=== PATIENT | male | born 1970 | race Hispanic/Latino ===

== ENCOUNTER 2017-04-02 14:30 | Emergency (ER) | payer SELFPAY ==
[~2017-04-02] VITALS: Ht 152.4 cm; Wt 70.0 kg
[2017-04-02] MEDS ORDERED: CORTISPORIN OTI10 ML AS (17:31)
[2017-04-02] MEDS ORDERED: AMOXICILLIN500 MG PO (17:31)
[2017-04-02 17:38] VITALS: BP 143/78
== END 2017-04-02 17:40 | disposition home or self-care (01) | DRG 153 ==
LOC: ED 14:30
DX: H66.92 Otitis media, unspecified, left ear (principal); I10 Essential (primary) hypertension

== ENCOUNTER 2018-04-08 14:23 | Emergency (ER) | payer SELFPAY ==
[~2018-04-08] VITALS: Ht 152.4 cm; Wt 56.5 kg
[~2018-04-08 14:23] MED LIST: AMOXICILLIN500 MG PO; CORTISPORIN OTI10 ML AS
[2018-04-08 14:45] VITALS: BP 143/93
== END 2018-04-08 15:40 | disposition left against medical advice (07) | DRG 951 ==
LOC: ED 14:23 → LWOBS 15:26 → ED 15:26 → LWOBS 15:40
DX: Z91.19 Patient's noncompliance with other medical treatment and regimen (principal)

== ENCOUNTER 2018-08-30 11:15 | Emergency (ER) | payer SELFPAY ==
[~2018-08-30] VITALS: Ht 152.4 cm; Wt 60.0 kg
[2018-08-30 12:36] VITALS: BP 146/88
== END 2018-08-30 12:36 | disposition home or self-care (01) | DRG 156 ==
LOC: ED 11:15
DX: S01.20XA Unspecified open wound of nose, initial encounter (principal); I10 Essential (primary) hypertension; X58.XXXA Exposure to other specified factors, initial encounter

== ENCOUNTER 2018-10-10 14:23 | Emergency (ER) | payer SELFPAY ==
[~2018-10-10] VITALS: Ht 152.4 cm; Wt 70.0 kg
[2018-10-10] MEDS ORDERED: MOTRIN400 MG PO (15:37)
[2018-10-10 15:47] VITALS: BP 119/78
== END 2018-10-10 15:48 | disposition home or self-care (01) | DRG 103 ==
LOC: ED 14:23
DX: R51 Headache (principal); I10 Essential (primary) hypertension

== ENCOUNTER 2018-12-26 13:13 | Emergency (ER) | payer SELFPAY ==
[~2018-12-26] VITALS: Ht 152.4 cm; Wt 65.0 kg
[~2018-12-26 13:13] MED LIST changes: +MOTRIN400 MG PO
[2018-12-26] MEDS ORDERED: BACTRIM DS1 TAB PO (14:50)
[2018-12-26] MEDS ORDERED: CEPHALEXIN500 M1 PO (14:50)
[2018-12-26 15:26] VITALS: BP 116/73
== END 2018-12-26 15:26 | disposition home or self-care (01) | DRG 607 ==
LOC: ED 13:13
DX: R22.2 Localized swelling, mass and lump, trunk (principal)

== ENCOUNTER 2019-02-08 16:02 | Observation (INO) | payer SELFPAY ==
[~2019-02-08] VITALS: Ht 152.4 cm; Wt 51.0 kg
[~2019-02-08 16:02] MED LIST changes: +BACTRIM DS1 TAB PO; +CEPHALEXIN500 M1 PO
[2019-02-08 17:21] LABS: URINE BILIRUBIN - DIPSTICK NEGATIVE (NEGATIVE); URINE BLOOD DIPSTICK NEGATIVE (NEGATIVE); URINE COLOR YELLOW; URINE GLUCOSE - DIPSTICK NEGATIVE (NEGATIVE); URINE KETONE NEGATIVE (NEGATIVE); URINE LEUK ESTERASE NEGATIVE (NEGATIVE); URINE NITRITE - DIPSTICK NEGATIVE (Negative); URINE PROTEIN - DIPSTICK NEGATIVE (NEG-TRACE); URINE SPECIFIC GRAVITY <=1.005; URINE UROBILINOGEN - DIPSTICK 0.2 E.U./dL (0.2)
[2019-02-08 17:24] LABS: BARBITURATES NEGATIVE (NEGATIVE); COCAINE NEGATIVE (NEGATIVE); METHADONE NEGATIVE (NEGATIVE); OXCYCODONE NEGATIVE (NEGATIVE); TETRAHYDROCANNABIONOL NEGATIVE (NEGATIVE); TRICYLIC ANTIDEPRESSANTS NEGATIVE (NEGATIVE)
[2019-02-08 17:34] LABS: ALBUMIN 4.5 g/dL (3.2-5.0); ALKALINE PHOSPHATASE 130 u/l (38-126); ANION GAP 21 (6-22 (CALC)); BUN 2 mg/dL (9-20); BUN/CREATININE RATIO 5 (12-20 (CALC)); CARBON DIOXIDE 25 mmol/l (22-30); CHLORIDE 100 mmol/l (95-108); CPK 160 u/l (52-200); CREATININE 0.4 mg/dL (0.7-1.3); GFR > 60 ML/MIN (>=60 (CALC)); GFR FOR AFR.AMER. > 60 ML/MIN (>=60 (CALC)); MAGNESIUM 1.6 mg/dL (1.6-2.3); POTASSIUM 4.2 mmol/l (3.5-5.1); SGOT/AST 193 u/l (17-59); SODIUM 141 mmol/l (137-146)
[2019-02-08 17:51] LABS: BILIRUBIN, TOTAL 0.6 mg/dL (0.0-1.4)
[2019-02-08 17:52] LABS: ETHYL ALCOHOL 386 mg/dl (0-30)
[2019-02-08 17:55] LABS: HEMATOCRIT 33.2 % (39.0-50.0); HEMOGLOBIN 11.2 g/dl (14.0-18.0); IMMATURE GRANULOCYTES 0.4 % (0.0-5.0); MEAN CELL VOLUME 93.5 fL CALC (80.0-100.0); MEAN CORPUSCULAR HGB 31.5 pG CALC (26.0-32.0); MEAN CORPUSCULAR HGB CONC 33.7 g/L CALC (32.0-36.0); NEUT# 3.45 thou/uL (1.82-7.42); RED BLOOD COUNT 3.55 mill/uL (4.70-6.10); RED CELL DISTRI WIDTH 13.6 % (11.5-15.5)
[2019-02-08 19:05] VITALS: BP 128/73
[2019-02-09 00:20] VITALS: BP 130/76
[2019-02-09 04:43] VITALS: BP 162/92
[2019-02-09 05:32] LABS: HEMATOCRIT 35.2 % (39.0-50.0); HEMOGLOBIN 11.6 g/dl (14.0-18.0); IMMATURE GRANULOCYTES 0.2 % (0.0-5.0); MEAN CELL VOLUME 95.1 fL CALC (80.0-100.0); MEAN CORPUSCULAR HGB 31.4 pG CALC (26.0-32.0); NEUT# 4.4 thou/uL (1.82-7.42); RED BLOOD COUNT 3.7 mill/uL (4.70-6.10); RED CELL DISTRI WIDTH 13.4 % (11.5-15.5)
[2019-02-09 05:45] LABS: ALBUMIN 4.4 g/dL (3.2-5.0); ALKALINE PHOSPHATASE 131 u/l (38-126); ANION GAP 17 (6-22 (CALC)); BILIRUBIN, TOTAL 0.8 mg/dL (0.0-1.4); BUN 2 mg/dL (9-20); BUN/CREATININE RATIO 6 (12-20 (CALC)); CARBON DIOXIDE 29 mmol/l (22-30); CHLORIDE 101 mmol/l (95-108); CREATININE 0.4 mg/dL (0.7-1.3); GFR > 60 ML/MIN (>=60 (CALC)); GFR FOR AFR.AMER. > 60 ML/MIN (>=60 (CALC)); POTASSIUM 4.1 mmol/l (3.5-5.1); SGOT/AST 186 u/l (17-59); SODIUM 143 mmol/l (137-146)
[2019-02-09 07:37] VITALS: BP 153/85
[2019-02-09 11:25] VITALS: BP 107/69; BP 137/84
[2019-02-09 12:57] LABS: MAGNESIUM 1.2 mg/dL (1.6-2.3)
[2019-02-09 15:25] VITALS: BP 125/75
[2019-02-09 20:05] VITALS: BP 131/73
[2019-02-10 00:10] VITALS: BP 146/81
[2019-02-10 04:26] VITALS: BP 158/82
[2019-02-10 05:19] LABS: HEMATOCRIT 36.7 % (39.0-50.0); HEMOGLOBIN 12.3 g/dl (14.0-18.0); IMMATURE GRANULOCYTES 0.4 % (0.0-5.0); MEAN CELL VOLUME 94.3 fL CALC (80.0-100.0); MEAN CORPUSCULAR HGB 31.6 pG CALC (26.0-32.0); MEAN CORPUSCULAR HGB CONC 33.5 g/L CALC (32.0-36.0); NEUT# 3.94 thou/uL (1.82-7.42); RED BLOOD COUNT 3.89 mill/uL (4.70-6.10); RED CELL DISTRI WIDTH 13.2 % (11.5-15.5)
[2019-02-10 05:42] LABS: ALBUMIN 4.2 g/dL (3.2-5.0); ALKALINE PHOSPHATASE 124 u/l (38-126); ANION GAP 17 (6-22 (CALC)); BUN 6 mg/dL (9-20); BUN/CREATININE RATIO 15 (12-20 (CALC)); CARBON DIOXIDE 27 mmol/l (22-30); CHLORIDE 100 mmol/l (95-108); CREATININE 0.4 mg/dL (0.7-1.3); GFR > 60 ML/MIN (>=60 (CALC)); GFR FOR AFR.AMER. > 60 ML/MIN (>=60 (CALC)); POTASSIUM 3.5 mmol/l (3.5-5.1); SGOT/AST 121 u/l (17-59); SODIUM 140 mmol/l (137-146); TOTAL PROTEIN 8.4 g/dL (6.3-8.2)
[2019-02-10 05:53] LABS: BILIRUBIN, TOTAL 1.4 mg/dL (0.0-1.4)
[2019-02-10 07:56] VITALS: BP 118/78
[2019-02-10 10:54] VITALS: BP 155/93
[2019-02-10] MEDS ORDERED: AMOX/K CLAV875 M1 PO (11:22)
== END 2019-02-10 15:45 | disposition home or self-care (01) | DRG 195 ==
LOC: ED 16:02 → ED-I 17:57 → ED 18:16 → MS2 18:17
PROVIDERS: Nurse Practitioner Family; ADMIT Internal Medicine; ATTEND Internal Medicine
DX: J18.9 Pneumonia, unspecified organism (principal); F10.129 Alcohol abuse with intoxication, unspecified; Y90.8 Blood alcohol level of 240 mg/100 ml or more; I10 Essential (primary) hypertension; G62.9 Polyneuropathy, unspecified; D69.59 Other secondary thrombocytopenia; R07.89 Other chest pain
CPT/HCPCS: G0378; J1650; J3475

== ENCOUNTER 2019-03-11 18:05 | Emergency (ER) | payer SELFPAY ==
[~2019-03-11] VITALS: Ht 152.4 cm; Wt 46.0 kg
[~2019-03-11 18:05] MED LIST changes: +AMOX/K CLAV875 M1 PO
[2019-03-11] MEDS ORDERED: CORTISPORIN OTI10 M2 AS (18:32)
[2019-03-11 18:54] VITALS: BP 135/82
== END 2019-03-11 18:54 | disposition home or self-care (01) | DRG 156 ==
LOC: ED 18:05
DX: H60.92 Unspecified otitis externa, left ear (principal); S00.412A Abrasion of left ear, initial encounter; I10 Essential (primary) hypertension; X58.XXXA Exposure to other specified factors, initial encounter

== ENCOUNTER 2019-07-16 | Emergency (ER) | payer SELFPAY ==
[~2019-07-16] MED LIST changes: +CORTISPORIN OTI10 M2 AS
[2019-07-16] MEDS ORDERED: CEPHALEXIN500 M1 PO (16:43)
[2019-07-16] MEDS ORDERED: BACTRIM DS1 TAB PO (16:43)
== END 2019-07-16 17:42 | disposition home or self-care (01) | DRG 563 ==
PROC: 0RSXXZZ Reposition Left Finger Phalangeal Joint, External Approach (ICD-10-PCS; principal; 2019-07-16)
DX: S63.285A Dislocation of proximal interphalangeal joint of left ring finger, initial encounter (principal); L03.113 Cellulitis of right upper limb; I10 Essential (primary) hypertension; W31.89XA Contact with other specified machinery, initial encounter; Y92.89 Other specified places as the place of occurrence of the external cause; Y99.0 Civilian activity done for income or pay

== ENCOUNTER 2019-07-17 14:13 | Emergency (ER) | payer SELFPAY ==
[2019-07-17 15:25] VITALS: BP 130/80
== END 2019-07-17 15:37 | disposition home or self-care (01) | DRG 603 ==
LOC: ED 14:13 → EDBD 14:49 → ED 15:37
DX: L03.011 Cellulitis of right finger (principal); L03.012 Cellulitis of left finger; T50.916A Underdosing of multiple unspecified drugs, medicaments and biological substances, initial encounter; Z91.120 Patient's intentional underdosing of medication regimen due to financial hardship; S60.411D Abrasion of left index finger, subsequent encounter; X58.XXXD Exposure to other specified factors, subsequent encounter

== ENCOUNTER 2019-08-16 | Emergency (ER) | payer SELFPAY ==
[2019-08-16 18:01] LABS: IMMATURE GRANULOCYTES 0.2 % (0.0-5.0); MEAN CORPUSCULAR HGB 29.7 pG CALC (26.0-32.0); NEUT# 2.89 thou/uL (1.82-7.42); RED BLOOD COUNT 3.47 mill/uL (4.70-6.10); RED CELL DISTRI WIDTH 14.1 % (11.5-15.5)
[2019-08-16 18:21] LABS: HEMATOCRIT 30.3 % (39.0-50.0); HEMOGLOBIN 10.3 g/dl (14.0-18.0); MEAN CELL VOLUME 87.3 fL CALC (80.0-100.0)
[2019-08-16 18:30] LABS: BUN 7 mg/dL (9-20); BUN/CREATININE RATIO 14 (12-20 (CALC)); CHLORIDE 93 mmol/l (95-108); CREATININE 0.5 mg/dL (0.7-1.3); GFR > 60 ML/MIN (>=60 (CALC)); GFR FOR AFR.AMER. > 60 ML/MIN (>=60 (CALC)); POTASSIUM 4.2 mmol/l (3.5-5.1)
[2019-08-16 18:33] LABS: ANION GAP 21 (6-22 (CALC)); CARBON DIOXIDE 21 mmol/l (22-30); SODIUM 131 mmol/l (137-146)
[2019-08-16] MEDS ORDERED: MOTRIN400 MG PO (18:38)
== END 2019-08-16 19:05 | disposition home or self-care (01) | DRG 313 ==
PROVIDERS: Family Medicine
DX: R07.9 Chest pain, unspecified (principal); S20.219A Contusion of unspecified front wall of thorax, initial encounter; I10 Essential (primary) hypertension; Y04.0XXA Assault by unarmed brawl or fight, initial encounter

== ENCOUNTER 2019-08-23 | Emergency (ER) | payer SELFPAY ==
[2019-08-23 21:05] LABS: HEMOGLOBIN 10.3 g/dl (14.0-18.0); IMMATURE GRANULOCYTES 0.2 % (0.0-5.0); MEAN CELL VOLUME 86.2 fL CALC (80.0-100.0); MEAN CORPUSCULAR HGB 29.6 pG CALC (26.0-32.0); MEAN CORPUSCULAR HGB CONC 34.3 g/dL CAL (32.0-36.0); NEUT# 3.17 thou/uL (1.82-7.42); RED BLOOD COUNT 3.48 mill/uL (4.70-6.10); RED CELL DISTRI WIDTH 14.3 % (11.5-15.5)
[2019-08-23 21:15] LABS: ALBUMIN 4.7 g/dL (3.2-5.0); ALKALINE PHOSPHATASE 117 u/l (38-126); AMYLASE 53 u/l (30-110); ANION GAP 22 (6-22 (CALC)); BUN 5 mg/dL (9-20); BUN/CREATININE RATIO 12 (12-20 (CALC)); CARBON DIOXIDE 19 mmol/l (22-30); CHLORIDE 93 mmol/l (95-108); CREATININE 0.4 mg/dL (0.7-1.3); GFR > 60 ML/MIN (>=60 (CALC)); GFR FOR AFR.AMER. > 60 ML/MIN (>=60 (CALC)); LIPASE 463 u/l (23-300); POTASSIUM 4.5 mmol/l (3.5-5.1); SODIUM 130 mmol/l (137-146); TOTAL PROTEIN 9.3 g/dL (6.3-8.2)
[2019-08-23 21:18] LABS: BILIRUBIN, TOTAL 0.7 mg/dL (0.0-1.4); SGOT/AST 234 u/l (17-59)
[2019-08-23 21:26] LABS: MYOGLOBIN 30 ng/mL (0 - 121)
[2019-08-23 21:31] LABS: ETHYL ALCOHOL 416 mg/dl (0-30)
[2019-08-23 22:04] LABS: BARBITURATES NEGATIVE (NEGATIVE); COCAINE NEGATIVE (NEGATIVE); METHADONE NEGATIVE (NEGATIVE); OXCYCODONE NEGATIVE (NEGATIVE); TETRAHYDROCANNABIONOL NEGATIVE (NEGATIVE); TRICYLIC ANTIDEPRESSANTS NEGATIVE (NEGATIVE); URINE BILIRUBIN - DIPSTICK NEGATIVE (NEGATIVE); URINE BLOOD DIPSTICK NEGATIVE (NEGATIVE); URINE COLOR YELLOW; URINE GLUCOSE - DIPSTICK NEGATIVE (NEGATIVE); URINE KETONE NEGATIVE (NEGATIVE); URINE LEUK ESTERASE NEGATIVE (NEGATIVE); URINE NITRITE - DIPSTICK NEGATIVE (Negative); URINE PH 5.5 (4.5-8.0); URINE PROTEIN - DIPSTICK NEGATIVE (NEG-TRACE); URINE SPECIFIC GRAVITY <=1.005; URINE UROBILINOGEN - DIPSTICK 0.2 E.U./dL (0.2)
[2019-08-23] MEDS ORDERED: PEPCID20 MG PO (22:30)
== END 2019-08-24 09:05 | disposition home or self-care (01) | DRG 313 ==
PROVIDERS: Family Medicine
DX: R07.89 Other chest pain (principal); F10.10 Alcohol abuse, uncomplicated; I10 Essential (primary) hypertension

== ENCOUNTER 2019-08-27 | Emergency (ER) | payer SELFPAY ==
[~2019-08-27] MED LIST changes: +PEPCID20 MG PO
[2019-08-27 07:28] LABS: HEMATOCRIT 30.9 % (39.0-50.0); HEMOGLOBIN 10.4 g/dl (14.0-18.0); IMMATURE GRANULOCYTES 0.4 % (0.0-5.0); MEAN CELL VOLUME 88.3 fL CALC (80.0-100.0); MEAN CORPUSCULAR HGB 29.7 pG CALC (26.0-32.0); MEAN CORPUSCULAR HGB CONC 33.7 g/dL CAL (32.0-36.0); NEUT# 3.94 thou/uL (1.82-7.42); RED BLOOD COUNT 3.5 mill/uL (4.70-6.10); RED CELL DISTRI WIDTH 14.8 % (11.5-15.5)
[2019-08-27 07:45] LABS: ALBUMIN 4.6 g/dL (3.2-5.0); ALKALINE PHOSPHATASE 149 u/l (38-126); ANION GAP 21 (6-22 (CALC)); BILIRUBIN, TOTAL 0.8 mg/dL (0.0-1.4); BUN 4 mg/dL (9-20); BUN/CREATININE RATIO 10 (12-20 (CALC)); CARBON DIOXIDE 22 mmol/l (22-30); CHLORIDE 97 mmol/l (95-108); CREATININE 0.4 mg/dL (0.7-1.3); GFR > 60 ML/MIN (>=60 (CALC)); GFR FOR AFR.AMER. > 60 ML/MIN (>=60 (CALC)); POTASSIUM 4.2 mmol/l (3.5-5.1); SGOT/AST 293 u/l (17-59); SODIUM 135 mmol/l (137-146); TOTAL PROTEIN 9.3 g/dL (6.3-8.2)
[2019-08-27 08:06] LABS: ACT PARTIAL THROMBO TIME 29.9 SECONDS (20.0-32.5); INTERNATIONAL NORMALIZED RATIO 1.1 RATIO (0.7-1.3); PROTHROMBIN TIME 11.4 SECONDS (9.0-12.5)
[2019-08-27 08:08] LABS: ETHYL ALCOHOL 366 mg/dl (0-30)
== END 2019-08-27 16:38 | disposition home or self-care (01) | DRG 156 ==
DX: S02.2XXA Fracture of nasal bones, initial encounter for closed fracture (principal); S20.212A Contusion of left front wall of thorax, initial encounter; S20.211A Contusion of right front wall of thorax, initial encounter; S05.11XA Contusion of eyeball and orbital tissues, right eye, initial encounter; Y04.2XXA Assault by strike against or bumped into by another person, initial encounter; I10 Essential (primary) hypertension; F10.129 Alcohol abuse with intoxication, unspecified

== ENCOUNTER 2019-08-30 | Emergency (ER) | payer SELFPAY ==
[2019-08-30] MEDS ORDERED: (None)3.5 GM OD (20:18)
[2019-08-30] MEDS ORDERED: AUGMENTIN500TAB PO (20:18)
== END 2019-08-30 20:40 | disposition home or self-care (01) | DRG 125 ==
DX: B60.12 Conjunctivitis due to Acanthamoeba (principal); H11.31 Conjunctival hemorrhage, right eye; S00.11XD Contusion of right eyelid and periocular area, subsequent encounter; S02.2XXD Fracture of nasal bones, subsequent encounter for fracture with routine healing; Y09 Assault by unspecified means

== ENCOUNTER 2019-09-10 | Emergency (ER) | payer SELFPAY ==
[~2019-09-10] MED LIST changes: +(None)3.5 GM OD; +AUGMENTIN500TAB PO
== END 2019-09-10 20:23 | disposition left against medical advice (07) | DRG 951 ==
DX: Z53.21 Procedure and treatment not carried out due to patient leaving prior to being seen by health care provider (principal)

== ENCOUNTER 2019-09-25 | Emergency (ER) | payer SELFPAY | END 2019-09-25 18:04 | disposition home or self-care (01) | DRG 951 | DX: Z03.89 Encounter for observation for other suspected diseases and conditions ruled out (principal); I10 Essential (primary) hypertension; S00.11XD Contusion of right eyelid and periocular area, subsequent encounter; W50.0XXD Accidental hit or strike by another person, subsequent encounter; Z72.89 Other problems related to lifestyle ==

== ENCOUNTER 2019-10-16 07:59 | Emergency (ER) | payer SELFPAY ==
[2019-10-16 09:04] LABS: HEMATOCRIT 31.8 % (39.0-50.0); HEMOGLOBIN 10.4 g/dl (14.0-18.0); IMMATURE GRANULOCYTES 0.4 % (0.0-5.0); MEAN CELL VOLUME 87.1 fL CALC (80.0-100.0); MEAN CORPUSCULAR HGB 28.5 pG CALC (26.0-32.0); MEAN CORPUSCULAR HGB CONC 32.7 g/dL CAL (32.0-36.0); NEUT# 4.15 thou/uL (1.82-7.42); RED BLOOD COUNT 3.65 mill/uL (4.70-6.10); RED CELL DISTRI WIDTH 16.1 % (11.5-15.5)
[2019-10-16 10:07] LABS: ALBUMIN 4.5 g/dL (3.2-5.0); ALKALINE PHOSPHATASE 168 u/l (38-126); ANION GAP 17 (6-22 (CALC)); BUN 3 mg/dL (9-20); BUN/CREATININE RATIO 7 (12-20 (CALC)); CARBON DIOXIDE 25 mmol/l (22-30); CHLORIDE 98 mmol/l (95-108); CREATININE 0.4 mg/dL (0.7-1.3); GFR > 60 ML/MIN (>=60 (CALC)); GFR FOR AFR.AMER. > 60 ML/MIN (>=60 (CALC)); SGOT/AST 348 u/l (17-59); SODIUM 137 mmol/l (137-146); TOTAL PROTEIN 9.7 g/dL (6.3-8.2)
[2019-10-16] MEDS ORDERED: MEDDOSEPAK PO ×2 (10:33)
[2019-10-16 10:36] LABS: ETHYL ALCOHOL 287 mg/dl (0-30)
[2019-10-16 10:44] VITALS: BP 129/95
== END 2019-10-16 10:50 | disposition home or self-care (01) | DRG 74 ==
LOC: ED 07:59
PROVIDERS: Emergency Medicine
DX: G58.8 Other specified mononeuropathies (principal); I10 Essential (primary) hypertension; F10.10 Alcohol abuse, uncomplicated

== ENCOUNTER 2019-10-22 20:09 | Emergency (ER) | payer SELFPAY ==
[~2019-10-22 20:09] MED LIST changes: +MEDDOSEPAK PO
[2019-10-22 21:17] LABS: HEMATOCRIT 26.2 % (39.0-50.0); HEMOGLOBIN 8.6 g/dl (14.0-18.0); IMMATURE GRANULOCYTES 0.3 % (0.0-5.0); MEAN CELL VOLUME 86.5 fL CALC (80.0-100.0); MEAN CORPUSCULAR HGB 28.4 pG CALC (26.0-32.0); MEAN CORPUSCULAR HGB CONC 32.8 g/dL CAL (32.0-36.0); NEUT# 4.39 thou/uL (1.82-7.42); RED BLOOD COUNT 3.03 mill/uL (4.70-6.10); RED CELL DISTRI WIDTH 17.1 % (11.5-15.5)
[2019-10-22 21:28] LABS: ALBUMIN 4.2 g/dL (3.2-5.0); ALKALINE PHOSPHATASE 157 u/l (38-126); BILIRUBIN, TOTAL 1.1 mg/dL (0.0-1.4); BUN 5 mg/dL (9-20); BUN/CREATININE RATIO 12 (12-20 (CALC)); CHLORIDE 96 mmol/l (95-108); CREATININE 0.4 mg/dL (0.7-1.3); GFR > 60 ML/MIN (>=60 (CALC)); GFR FOR AFR.AMER. > 60 ML/MIN (>=60 (CALC)); POTASSIUM 4.7 mmol/l (3.5-5.1); SGOT/AST 251 u/l (17-59); SODIUM 131 mmol/l (137-146)
[2019-10-22 21:36] LABS: ANION GAP 22 (6-22 (CALC)); CARBON DIOXIDE 18 mmol/l (22-30)
[2019-10-22 21:38] LABS: ETHYL ALCOHOL 359 mg/dl (0-30)
[2019-10-23 00:50] LABS: INTERNATIONAL NORMALIZED RATIO 1.2 RATIO (0.7-1.3); PROTHROMBIN TIME 12.2 SECONDS (9.0-12.5)
[2019-10-23 01:00] VITALS: BP 115/70
[2019-10-23 01:39] LABS: URINE BILIRUBIN - DIPSTICK NEGATIVE (NEGATIVE); URINE BLOOD DIPSTICK LARGE (NEGATIVE); URINE COLOR YELLOW; URINE GLUCOSE - DIPSTICK NEGATIVE (NEGATIVE); URINE KETONE NEGATIVE (NEGATIVE); URINE NITRITE - DIPSTICK NEGATIVE (Negative); URINE PROTEIN - DIPSTICK NEGATIVE (NEG-TRACE); URINE UROBILINOGEN - DIPSTICK 0.2 E.U./dL (0.2)
[2019-10-23 01:45] LABS: URINE LEUK ESTERASE NEGATIVE (NEGATIVE)
[2019-10-23 01:46] LABS: COCAINE NEGATIVE (NEGATIVE); URINE BACTERIA FEW hpf; URINE EPITHELIAL CELLS FEW EPI/hpf (0-FEW); URINE RBC 25-50 RBC/hpf (0-5)
[2019-10-23 01:47] LABS: BARBITURATES NEGATIVE (NEGATIVE); METHADONE NEGATIVE (NEGATIVE); OXCYCODONE NEGATIVE (NEGATIVE); TETRAHYDROCANNABIONOL NEGATIVE (NEGATIVE); TRICYLIC ANTIDEPRESSANTS NEGATIVE (NEGATIVE)
== END 2019-10-23 01:16 | DRG 563 ==
LOC: ED 20:09
PROVIDERS: Emergency Medicine
DX: S82.142A Displaced bicondylar fracture of left tibia, initial encounter for closed fracture (principal); F10.129 Alcohol abuse with intoxication, unspecified; M21.332 Wrist drop, left wrist; I10 Essential (primary) hypertension; V03.90XA Pedestrian on foot injured in collision with car, pick-up truck or van, unspecified whether traffic or nontraffic accident, initial encounter
CPT/HCPCS: L1830

== ENCOUNTER 2019-11-15 17:00 | Emergency (ER) | payer SELFPAY ==
[~2019-11-15] VITALS: Ht 154.9 cm; Wt 50.0 kg
[2019-11-15 18:00] LABS: HEMATOCRIT 29.1 % (39.0-50.0); HEMOGLOBIN 9.8 g/dl (14.0-18.0); IMMATURE GRANULOCYTES 0.3 % (0.0-5.0); MEAN CELL VOLUME 86.6 fL CALC (80.0-100.0); MEAN CORPUSCULAR HGB 29.2 pG CALC (26.0-32.0); MEAN CORPUSCULAR HGB CONC 33.7 g/dL CAL (32.0-36.0); NEUT# 4.13 thou/uL (1.82-7.42); RED BLOOD COUNT 3.36 mill/uL (4.70-6.10); RED CELL DISTRI WIDTH 16.9 % (11.5-15.5)
[2019-11-15 18:35] LABS: D-DIMER 3.71 mg/L (0.19-0.60)
[2019-11-15 18:36] LABS: INTERNATIONAL NORMALIZED RATIO 1.1 RATIO (0.7-1.3); PROTHROMBIN TIME 11.8 SECONDS (9.0-12.5)
[2019-11-15 20:23] VITALS: BP 136/86
== END 2019-11-15 21:25 | disposition home or self-care (01) | DRG 556 ==
LOC: ED 17:00
PROVIDERS: Emergency Medicine
DX: M79.89 Other specified soft tissue disorders (principal); I10 Essential (primary) hypertension; V09.9XXD Pedestrian injured in unspecified transport accident, subsequent encounter

== ENCOUNTER 2020-01-06 12:19 | Emergency (ER) | payer OTHER ==
[~2020-01-06] VITALS: Ht 154.9 cm; Wt 59.1 kg
[2020-01-06 14:16] VITALS: BP 148/81
== END 2020-01-06 14:07 | disposition home or self-care (01) | DRG 556 ==
LOC: ED 12:19
DX: M25.562 Pain in left knee (principal); I10 Essential (primary) hypertension; V09.9XXA Pedestrian injured in unspecified transport accident, initial encounter

== ENCOUNTER 2020-03-11 15:50 | Emergency (ER) | payer SELFPAY | END 2020-03-11 16:25 | disposition left against medical advice (07) | DRG 951 | LOC: ED 15:50 → LWOBS 16:25 → ED 16:25 | DX: Z91.19 Patient's noncompliance with other medical treatment and regimen (principal) ==

== ENCOUNTER 2020-03-19 08:27 | Emergency (ER) | payer SELFPAY ==
[~2020-03-19] VITALS: Ht 154.9 cm; Wt 50.0 kg
[2020-03-19 09:22] LABS: HEMOGLOBIN 10.9 g/dl (14.0-18.0); IMMATURE GRANULOCYTES 0.2 % (0.0-5.0); MEAN CORPUSCULAR HGB 31.4 pG CALC (26.0-32.0); MEAN CORPUSCULAR HGB CONC 34.1 g/dL CAL (32.0-36.0); NEUT# 3.18 thou/uL (1.82-7.42); RED BLOOD COUNT 3.47 mill/uL (4.70-6.10); RED CELL DISTRI WIDTH 14.1 % (11.5-15.5)
[2020-03-19 09:32] LABS: MEAN CELL VOLUME 92.2 fL CALC (80.0-100.0)
[2020-03-19 09:41] LABS: ALBUMIN 4.7 g/dL (3.2-5.0); ALKALINE PHOSPHATASE 132 u/l (38-126); BILIRUBIN, TOTAL 1.1 mg/dL (0.0-1.4); BUN < 2 mg/dL (9-20); CHLORIDE 90 mmol/l (95-108); CREATININE 0.4 mg/dL (0.7-1.3); GFR > 60 ML/MIN (>=60 (CALC)); GFR FOR AFR.AMER. > 60 ML/MIN (>=60 (CALC)); SGOT/AST 303 u/l (17-59); SODIUM 130 mmol/l (137-146); TOTAL PROTEIN 9.5 g/dL (6.3-8.2)
[2020-03-19 09:50] LABS: ANION GAP 18 (6-22 (CALC)); CARBON DIOXIDE 26 mmol/l (22-30); POTASSIUM 3.7 mmol/l (3.5-5.1)
[2020-03-19 09:52] LABS: ETHYL ALCOHOL 360 mg/dl (0-30)
[2020-03-19] MEDS ORDERED: MEDDOSEPAK PO (10:04)
[2020-03-19 10:41] VITALS: BP 145/92
== END 2020-03-19 11:05 | disposition home or self-care (01) | DRG 74 ==
LOC: ED 08:27
DX: G56.31 Lesion of radial nerve, right upper limb (principal); F10.129 Alcohol abuse with intoxication, unspecified; I10 Essential (primary) hypertension

== ENCOUNTER 2020-05-28 08:12 | Emergency (ER) | payer SELFPAY ==
[~2020-05-28] VITALS: Ht 154.9 cm; Wt 65.0 kg
[2020-05-28 08:47] LABS: HEMATOCRIT 36.2 % (39.0-50.0); HEMOGLOBIN 12.1 g/dl (14.0-18.0); IMMATURE GRANULOCYTES 0.2 % (0.0-5.0); MEAN CELL VOLUME 89.2 fL CALC (80.0-100.0); MEAN CORPUSCULAR HGB 29.8 pG CALC (26.0-32.0); MEAN CORPUSCULAR HGB CONC 33.4 g/dL CAL (32.0-36.0); NEUT# 2.35 thou/uL (1.82-7.42); RED BLOOD COUNT 4.06 mill/uL (4.70-6.10); RED CELL DISTRI WIDTH 13.8 % (11.5-15.5)
[2020-05-28 08:55] LABS: ALBUMIN 4.3 g/dL (3.2-5.0); ALKALINE PHOSPHATASE 123 u/l (38-126); BUN 4 mg/dL (9-20); BUN/CREATININE RATIO 10 (12-20 (CALC)); CHLORIDE 99 mmol/l (95-108); CREATININE 0.5 mg/dL (0.7-1.3); GFR > 60 ML/MIN (>=60 (CALC)); GFR FOR AFR.AMER. > 60 ML/MIN (>=60 (CALC)); LIPASE 348 u/l (23-300); SGOT/AST 208 u/l (17-59); SODIUM 133 mmol/l (137-146); TOTAL PROTEIN 9.6 g/dL (6.3-8.2)
[2020-05-28 08:57] LABS: ANION GAP 18 (6-22 (CALC)); BILIRUBIN, TOTAL 0.6 mg/dL (0.0-1.4); CARBON DIOXIDE 20 mmol/l (22-30)
[2020-05-28 09:36] LABS: URINE BILIRUBIN - DIPSTICK NEGATIVE (NEGATIVE); URINE BLOOD DIPSTICK TRACE-INTACT (NEGATIVE); URINE COLOR YELLOW; URINE GLUCOSE - DIPSTICK NEGATIVE (NEGATIVE); URINE KETONE NEGATIVE (NEGATIVE); URINE LEUK ESTERASE NEGATIVE (NEGATIVE); URINE NITRITE - DIPSTICK NEGATIVE (Negative); URINE PH 6.5 (4.5-8.0); URINE PROTEIN - DIPSTICK NEGATIVE (NEG-TRACE); URINE UROBILINOGEN - DIPSTICK 0.2 E.U./dL (0.2)
[2020-05-28] MEDS ORDERED: TAMSULOSIN0.4 MG PO (09:52)
[2020-05-28] MEDS ORDERED: TORADOL PO (09:52)
[2020-05-28 10:01] VITALS: BP 138/83
== END 2020-05-28 10:17 | disposition home or self-care (01) | DRG 694 ==
LOC: ED 08:12
DX: N20.1 Calculus of ureter (principal); I10 Essential (primary) hypertension; F10.10 Alcohol abuse, uncomplicated

== ENCOUNTER 2020-08-12 22:23 | Emergency (ER) | payer SELFPAY ==
[~2020-08-12] VITALS: Ht 154.9 cm; Wt 52.0 kg
[~2020-08-12 22:23] MED LIST changes: +TAMSULOSIN0.4 MG PO; +TORADOL PO
[2020-08-12 23:37] LABS: ALBUMIN 4.7 g/dL (3.2-5.0); ALKALINE PHOSPHATASE 175 u/l (38-126); ANION GAP 20 (6-22 (CALC)); BILIRUBIN, TOTAL 0.8 mg/dL (0.0-1.4); BUN 4 mg/dL (9-20); BUN/CREATININE RATIO 9 (12-20 (CALC)); CARBON DIOXIDE 24 mmol/l (22-30); CHLORIDE 99 mmol/l (95-108); CREATININE 0.5 mg/dL (0.7-1.3); GFR > 60 ML/MIN (>=60 (CALC)); GFR FOR AFR.AMER. > 60 ML/MIN (>=60 (CALC)); POTASSIUM 3.9 mmol/l (3.5-5.1); SGOT/AST 267 u/l (17-59); SODIUM 139 mmol/l (137-146); TOTAL PROTEIN 9.9 g/dL (6.3-8.2)
[2020-08-12 23:38] LABS: HEMATOCRIT 32.5 % (39.0-50.0); HEMOGLOBIN 10.5 g/dl (14.0-18.0); MEAN CELL VOLUME 87.4 fL CALC (80.0-100.0); MEAN CORPUSCULAR HGB 28.2 pG CALC (26.0-32.0); MEAN CORPUSCULAR HGB CONC 32.3 g/dL CAL (32.0-36.0); NEUT# 2.3 thou/uL (1.82-7.42); RED BLOOD COUNT 3.72 mill/uL (4.70-6.10); RED CELL DISTRI WIDTH 16.5 % (11.5-15.5)
[2020-08-13 03:15] VITALS: BP 150/88
== END 2020-08-13 03:15 | disposition home or self-care (01) | DRG 566 ==
LOC: ED 22:23
PROVIDERS: Emergency Medicine
DX: M25.462 Effusion, left knee (principal); I10 Essential (primary) hypertension

== ENCOUNTER 2021-08-07 10:37 | Emergency (ER) | payer SELFPAY ==
[2021-08-07] VITALS (11 sets, daily range): BP systolic 98–136; BP diastolic 59–81
[~2021-08-07] VITALS: Ht 154.9 cm; Wt 55.0 kg
[2021-08-07 11:10] LABS: IMMATURE GRANULOCYTES 0.2 % (0.0-5.0); MEAN CORPUSCULAR HGB 20.2 pG CALC (26.0-32.0); MEAN CORPUSCULAR HGB CONC 28.5 g/dL CAL (32.0-36.0); NEUT# 3.44 thou/uL (1.82-7.42); RED BLOOD COUNT 3.52 mill/uL (4.70-6.10); RED CELL DISTRI WIDTH 22.2 % (11.5-15.5)
[2021-08-07 11:15] LABS: URINE BILIRUBIN - DIPSTICK NEGATIVE (NEGATIVE); URINE BLOOD DIPSTICK MODERATE (NEGATIVE); URINE COLOR YELLOW; URINE GLUCOSE - DIPSTICK NEGATIVE (NEGATIVE); URINE KETONE NEGATIVE (NEGATIVE); URINE LEUK ESTERASE NEGATIVE (NEGATIVE); URINE PROTEIN - DIPSTICK 30 mg/dL (NEG-TRACE); URINE SPECIFIC GRAVITY 1.025
[2021-08-07 11:18] LABS: URINE NITRITE - DIPSTICK NEGATIVE (Negative)
[2021-08-07 11:19] LABS: URINE WBC 0-2 WBC/hpf (0-5)
[2021-08-07 11:28] LABS: HEMATOCRIT 24.9 % (39.0-50.0); HEMOGLOBIN 7.1 g/dl (14.0-18.0); INTERNATIONAL NORMALIZED RATIO 1.3 RATIO (0.7-1.3); MEAN CELL VOLUME 70.7 fL CALC (80.0-100.0); PROTHROMBIN TIME 13.1 SECONDS (9.0-12.5)
[2021-08-07 11:35] LABS: ALBUMIN 4.5 g/dL (3.2-5.0); ALKALINE PHOSPHATASE 173 u/l (38-126); BUN 5 mg/dL (9-20); BUN/CREATININE RATIO 11 (12-20 (CALC)); CHLORIDE 99 mmol/l (95-108); CREATININE 0.4 mg/dL (0.7-1.3); GFR > 60 ML/MIN (>=60 (CALC)); GFR FOR AFR.AMER. > 60 ML/MIN (>=60 (CALC)); POTASSIUM 4.2 mmol/l (3.5-5.1); SGOT/AST 165 u/l (17-59); SODIUM 136 mmol/l (137-146); TOTAL PROTEIN 10.4 g/dL (6.3-8.2)
[2021-08-07 11:47] LABS: ANION GAP 22 (6-22 (CALC)); BILIRUBIN, TOTAL 1.2 mg/dL (0.0-1.4); CARBON DIOXIDE 19 mmol/l (22-30); ETHYL ALCOHOL 410 mg/dl (0-30)
== END 2021-08-07 14:03 | disposition short-term general hospital (02) | DRG 923 ==
LOC: ED 10:37
PROVIDERS: Family Medicine
PROC: 0T9B70Z Drainage of Bladder with Drainage Device, Via Natural or Artificial Opening (ICD-10-PCS; principal; 2021-08-07)
DX: T68.XXXA Hypothermia, initial encounter (principal); F10.129 Alcohol abuse with intoxication, unspecified; D64.9 Anemia, unspecified; I85.00 Esophageal varices without bleeding; I10 Essential (primary) hypertension; X31.XXXA Exposure to excessive natural cold, initial encounter; Z20.822 Contact with and (suspected) exposure to COVID-19
CPT/HCPCS: J2354; S0164